=== PATIENT | male | born 1985 | race Caucasian/White ===

== ENCOUNTER 2019-10-27 23:23 | Emergency (ER) | payer OTHER ==
[~2019-10-27] VITALS: Ht 177.8 cm; Wt 93.0 kg
[~2019-10-27 23:23] MED LIST: DOXY100 PO; HYDACE5 PO
[2019-10-28] MEDS ORDERED: METPHE20 PO (00:31)
== END 2019-10-28 01:53 | disposition home or self-care (01) ==
LOC: ER 23:23
DX: S81.012A Laceration without foreign body, left knee, initial encounter (principal); Z23 Encounter for immunization; W25.XXXA Contact with sharp glass, initial encounter
CPT/HCPCS: 12002; 90471; 90714; 99282-25